=== PATIENT | male | born 1950 | race African-American/Black ===

== ENCOUNTER 2017-02-27 14:40 | Emergency (ER) | payer MEDICARE, MEDICAID ==
[~2017-02-27] VITALS: Ht 177.8 cm; Wt 100.0 kg
[2017-02-27] MEDS ORDERED: AMLO10TA80 PO (14:51)
[2017-02-27] MEDS ORDERED: LISI10TA5 PO (14:51)
[2017-02-27] MEDS ORDERED: METF500T4 PO (14:51)
[2017-02-27] MEDS ORDERED: SODIUM CHLORIDE 0.9% 1,000 ML IV ONE (15:13)
[2017-02-27] MEDS ORDERED: FAMOTIDINE 20MG/2ML VIAL IV STA (15:23)
[2017-02-27] MEDS ORDERED: ONDANSETRON HCL 4MG/2ML VIAL IV STA (15:23)
[2017-02-27 15:33] LABS: CLARITY URINE CLEAR (CLEAR); COLOR URINE YELLOW (YELLOW); GLUCOSE URINE NEGATIVE (NEGATIVE); KETONES URINE NEGATIVE (NEGATIVE); LEUKOCYTE ESTERASE URINE NEGATIVE (NEGATIVE); NITRITE URINE NEGATIVE (NEGATIVE); OCCULT BLOOD URINE TRACE (NEGATIVE); PROTEIN URINE TRACE (NEGATIVE); SPECIFIC GRAVITY URINE 1.023 (1.005-1.030)
[2017-02-27 15:36] LABS: BACTERIA URINE NONE SEEN; CALCIUM PHOSPHATE CRYSTALS UR NONE SEEN /lpf; RBC URINE 0-2 /hpf (0-2); SQUAMOUS EPITHELIAL CELL URINE NONE SEEN /lpf (RARE/1+); WAXY CASTS URINE NONE SEEN /lpf; WBC URINE 0-2 /hpf (0-2); YEAST URINE NONE SEEN
[2017-02-27 15:45] LABS: *AMPHETAMINES SCREEN URINE NEGATIVE (NEGATIVE); *BARBITURATES SCREEN URINE NEGATIVE (NEGATIVE); *BENZODIAZEPINES SCREEN URINE NEGATIVE (NEGATIVE); *COCAINE SCREEN URINE NEGATIVE (NEGATIVE); CANNABINOID URINE SCREEN NEGATIVE (NEGATIVE); ECSTASY MDMA SCREEN URINE NEGATIVE (NEGATIVE); METHADONE URINE SCREEN NEGATIVE (NEGATIVE); OPIATES URINE SCREEN NEGATIVE (NEGATIVE); PHENCYCLIDINE URINE SCREEN NEGATIVE (NEGATIVE)
[2017-02-27 15:50] LABS: BASOPHILS % 0.7 % (0.0-2.0); EOSINOPHILS % 4.7 % (0.0-5.0); HEMATOCRIT. 44.8 % (42.0-52.0); MEAN CORPUSCULAR HEMOGLOBIN 29.1 pg (28.0-32.0); MEAN CORPUSCULAR HGB CONC 33.5 g/dL (31.0-37.0); MEAN CORPUSCULAR VOLUME 87.1 fL (80.0-94.0); MEAN PLATELET VOLUME 9.3 fl (7.4-10.4); MONOCYTES % 7.4 % (2.0-8.0); NEUTROPHILS % 55.2 % (40.0-76.0); PLATELET 244 x1000/uL (130-400); RED BLOOD CELL COUNT 5.15 mill/uL (4.7-6.1); RED CELL DISTRIBUTION WIDTH 14.5 % (11.6-14.6); WHITE BLOOD COUNT 10.2 x1000/uL (4.5-11.0)
[2017-02-27 15:54] LABS: CHLORIDE 108 mEq/L (98-107); INDEX HEMOLYSI 1 (1-3); INDEX ICTERIC 1 (1-4); INDEX LIPEMIC 1 (1-3)
[2017-02-27 15:56] LABS: PARTIAL THROMBOPLASTIN TIME 28.2 sec (24.0-34.0); PROTHROMBIN TIME 10.7 sec
[2017-02-27 16:05] LABS: ALANINE AMINOTRANSFERASE 15 IU/L (13-61); ALBUMIN 3.9 g/dL (3.4-5.0); ANION GAP 11; CALCIUM 9.1 mg/dL (8.5-10.1); CARBON DIOXIDE 25 mEq/L (21-32); LIPASE 120 IU/L (73-393); UREA NITROGEN BLOOD 16 mg/dL (7-21); eGFR > 60 mL/min (>60)
[2017-02-27 17:40] VITALS: BP 138/77
== END 2017-02-27 18:16 | disposition home or self-care (01) ==
LOC: ER 14:40
DX: K58.9 Irritable bowel syndrome, unspecified (principal); R19.7 Diarrhea, unspecified; E86.0 Dehydration; E11.9 Type 2 diabetes mellitus without complications; I10 Essential (primary) hypertension; Z79.4 Long term (current) use of insulin; Z79.899 Other long term (current) drug therapy
CPT/HCPCS: 36415; 74176; 80053; 80305; 81001; 83690; 85025; 85610; 85730; 96361; 96374; 96375; 99285; J2405; J3490; J7030

== ENCOUNTER 2017-03-09 09:57 | Emergency (ER) | payer OTHER, MEDICAID ==
[~2017-03-09] VITALS: Ht 185.4 cm; Wt 100.0 kg
[~2017-03-09 09:57] MED LIST: AMLO10TA80 PO; LISI10TA5 PO; METF500T4 PO
[2017-03-09 10:59] LABS: BASOPHILS % 0.6 % (0.0-2.0); EOSINOPHILS % 3.9 % (0.0-5.0); HEMATOCRIT. 46.4 % (42.0-52.0); HEMOGLOBIN. 15.5 g/dL (14.0-18.0); LYMPHOCYTES % 23.5 % (20.0-50.0); MEAN CORPUSCULAR VOLUME 86.8 fL (80.0-94.0); MEAN PLATELET VOLUME 9.5 fl (7.4-10.4); MONOCYTES % 8.1 % (2.0-8.0); NEUTROPHILS % 63.9 % (40.0-76.0); PLATELET 239 x1000/uL (130-400); RED BLOOD CELL COUNT 5.34 mill/uL (4.7-6.1); RED CELL DISTRIBUTION WIDTH 14.5 % (11.6-14.6)
[2017-03-09 11:06] LABS: INR 1.1; PROTHROMBIN TIME 11.3 sec
[2017-03-09 11:10] LABS: CARBON DIOXIDE 22 mEq/L (21-32); CHLORIDE 109 mEq/L (98-107)
[2017-03-09 15:24] VITALS: BP 131/81
== END 2017-03-09 15:30 | disposition home or self-care (01) ==
LOC: ER 09:58
DX: R10.9 Unspecified abdominal pain (principal); K92.1 Melena; E11.9 Type 2 diabetes mellitus without complications; I10 Essential (primary) hypertension
CPT/HCPCS: 36415; 74176; 80053; 83690; 85025; 85610; 99285

== ENCOUNTER 2017-10-14 19:11 | Emergency (ER) | payer MEDICARE, MEDICAID ==
[~2017-10-14] VITALS: Ht 185.4 cm; Wt 95.0 kg
[2017-10-14] MEDS: ONDANSETRON HCL 4MG/2ML VIAL IV STA (22:45)
[2017-10-14] MEDS: SODIUM CHLORIDE 0.9% 1,000 ML IV ONE (22:50)
[2017-10-15 00:21] LABS: CLARITY URINE CLEAR (CLEAR); COLOR URINE DARK YELLOW (YELLOW); KETONES URINE TRACE (NEGATIVE); LEUKOCYTE ESTERASE URINE NEGATIVE (NEGATIVE); NITRITE URINE NEGATIVE (NEGATIVE); OCCULT BLOOD URINE NEGATIVE (NEGATIVE); PROTEIN URINE TRACE (NEGATIVE); SPECIFIC GRAVITY URINE 1.036 (1.005-1.030); UROBILINOGEN URINE 0.2 E.U./dL (0.2-1.0)
[2017-10-15 00:29] LABS: INR 1.1; PROTHROMBIN TIME 11.3 sec (9.4-11.6)
[2017-10-15 00:36] LABS: BASOPHILS % 0.6 % (0.0-2.0); EOSINOPHILS % 1.1 % (0.0-5.0); HEMATOCRIT. 46.3 % (42.0-52.0); HEMOGLOBIN. 15.3 g/dL (14.0-18.0); LYMPHOCYTES % 28.8 % (20.0-50.0); MEAN CORPUSCULAR HEMOGLOBIN 29.5 pg (28.0-32.0); MEAN CORPUSCULAR VOLUME 89.6 fL (80.0-94.0); MEAN PLATELET VOLUME 9.6 fl (7.4-10.4); MONOCYTES % 12.8 % (2.0-8.0); NEUTROPHILS % 56.7 % (40.0-76.0); PLATELET 187 x1000/uL (130-400); RED BLOOD CELL COUNT 5.17 mill/uL (4.7-6.1); RED CELL DISTRIBUTION WIDTH 14.2 % (11.6-14.6)
[2017-10-15 00:37] LABS: CARBON DIOXIDE 24 mEq/L (21-32); CHLORIDE 105 mEq/L (98-107)
[2017-10-15 01:47] VITALS: BP 114/74
== END 2017-10-15 01:47 | disposition home or self-care (01) ==
LOC: ER 22:03
DX: N28.9 Disorder of kidney and ureter, unspecified (principal); E86.0 Dehydration; E11.9 Type 2 diabetes mellitus without complications; E78.00 Pure hypercholesterolemia, unspecified; I10 Essential (primary) hypertension; Z87.891 Personal history of nicotine dependence; Z98.890 Other specified postprocedural states
CPT/HCPCS: 36415; 71010; 80053; 81001; 83605; 85025; 85610; 87040; 93005; 96361; 96374; 99285; J2405; J7030; 81003